=== PATIENT | male | born 2005 | race African-American/Black ===

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

== ENCOUNTER 2024-01-06 18:11 | Emergency (ER) | payer SELFPAY ==
[2024-01-06] MEDS ORDERED: Ibuprofen 800 MG TAB ONE (18:51)
== END 2024-01-06 19:26 | disposition home or self-care (01) ==
LOC: ERS 18:11
DX: S51.851A Open bite of right forearm, initial encounter (principal); F17.210 Nicotine dependence, cigarettes, uncomplicated; W50.3XXA Accidental bite by another person, initial encounter
CPT/HCPCS: 99282